=== PATIENT | female | born 1940 | race Caucasian/White ===

== ENCOUNTER → 2018-05-24 | Outpatient (CLI) | payer MEDICARE, OTHER ==
[~2018-05-24] MED LIST: ASPIR 8181 MG PO; BENAZEPRIL HCL10 MG PO; CENTRUM SILVER1 EAC4 PO; CITRACAL + D E1 EACH PO; CLARITIN10 MG PO; NORVASC5 MG PO
[2018-05-24 11:42] LABS: ALBUMIN 3.7 g/dL (3.4-5.0); ALKALINE PHOSPHATASE 76 U/L (46-116); ANION GAP 6 mmol/L (7-16); BUN 15 mg/dL (7-18); CALCIUM 10.3 mg/dL (8.5-10.1); CHLORIDE 107 mmol/L (98-107); CO2 31 mmol/L (21-32); CREATININE 0.9 mg/dL (0.6-1.3); DIRECT BILIRUBIN 0.1 mg/dL (<0.1-0.3); GLUCOSE 100 mg/dL (70-99); POTASSIUM 5.3 mmol/L (3.5-5.1); SGOT 21 U/L (15-37); SGPT 22 U/L (30-65); SODIUM 144 mmol/L (136-145); TOTAL BILIRUBIN 0.8 mg/dL (<0.1-1.0)
[2018-05-24 12:15] LABS: CHOLESTEROL 129 mg/dL (<200); HDL CHOLESTEROL 35 mg/dL (>40); LDL CHOLESTEROL 57 mg/dL (<100); TC:HDL 3.7 Ratio (Not establshd); TRIGLYCERIDE 188 mg/dL (<150); VLDL 38 mg/dL (<40)
[2018-05-24 12:17] LABS: SERUM ASSESSMENT Clear
== END ==
LOC: M.LAB 11:09
PROVIDERS: Internal Medicine Cardiovascular Disease
DX: I10 Essential (primary) hypertension (principal); E78.00 Pure hypercholesterolemia, unspecified; Z95.1 Presence of aortocoronary bypass graft

== ENCOUNTER → 2019-01-22 | Outpatient (CLI) | payer MEDICARE, BC | LOC: M.RAD 11:58 | DX: M47.816 Spondylosis without myelopathy or radiculopathy, lumbar region (principal); M47.817 Spondylosis without myelopathy or radiculopathy, lumbosacral region; M40.46 Postural lordosis, lumbar region ==

== ENCOUNTER → 2019-07-02 | Outpatient (CLI) | payer MEDICARE, BC | LOC: M.ULTRA 13:49 | DX: M71.22 Synovial cyst of popliteal space [Baker], left knee (principal) ==

== ENCOUNTER → 2020-12-07 | Outpatient (CLI) | payer MEDICARE, BC ==
[2020-12-07 11:31] LABS: ANION GAP 5 mmol/L (7-16); BUN 17 mg/dL (7-18); CALCIUM 9.7 mg/dL (8.5-10.1); CHLORIDE 106 mmol/L (98-107); CHOLESTEROL 203 mg/dL (<200); CO2 32 mmol/L (21-32); GLUCOSE 99 mg/dL (70-99); HDL CHOLESTEROL 35 mg/dL (>40); LDL CHOLESTEROL 112 mg/dL (<100); POTASSIUM 4.4 mmol/L (3.5-5.1); SODIUM 143 mmol/L (136-145); TC:HDL 5.8 Ratio (Not establshd); TRIGLYCERIDE 280 mg/dL (<150); VLDL 56 mg/dL (<40)
[2020-12-07 11:33] LABS: SERUM ASSESSMENT Clear
== END ==
LOC: M.LAB 10:56
PROVIDERS: ATTEND Nurse Practitioner
DX: I10 Essential (primary) hypertension (principal); E78.00 Pure hypercholesterolemia, unspecified